=== PATIENT | female | born 2000 | race Caucasian/White ===

== ENCOUNTER 2021-01-24 18:56 | Emergency (ER) | payer BC, SELFPAY ==
[2021-01-24 18:58] VITALS: BP 130/82; PULSE 98; RESP 16; TEMP 36; O2SAT 100; BMI 30.2
--- NOTE | 2021-01-24 19:25 | RAD_ITS ---
STUDY: X-RAY - RIGHT FOOT CLINICAL: Female, 20 years old. Injury. Horse stepped on foot. Bruising of the fifth toe. TECHNIQUE: 3 view(s) of the foot. COMPARISON: None. FINDINGS: Normal talus, calcaneus, and tarsal bones. Normal visualized subtalar, talonavicular, calcaneocuboid, tarsal and tarsometatarsal articulations. Normal metatarsi. Normal metatarsophalangeal joint of the great toe. Normal tibial and fibular sesamoid bones. Normal interphalangeal joint of the great toe. Normal phalanges of the great toe. Normal second through fifth metatarsophalangeal joints. Normal interphalangeal joints and phalanges of the lesser toes. The soft tissue structures are unremarkable. RAD/Foot min 3 Views IMPRESSION: No acute fracture or dislocation Electronically Signed: Alexandro Wong DO at 19:42 EDT Tel [phone], Service support ,
--- NOTE | 2021-01-24 19:48 | ED.VIS.LOWEX ---
HPI History of Present Illness Chief Complaint: Lower Extremity Injury Informant: patient Occured/Mechanism Mechanism/Context: Yes injury Onset/Context/Timing Onset: Today Context: Sudden Onset Timing: Continuous Location: Right small toe Current Severity: Mild Maximum Severity: Moderate Worsened by: Palpation, walking Relieved by: Remaining still, rest Associated Symptoms Associated Symptoms: Negative for Parasthesia, Weakness and Loss of Funtion Narrative Narrative: Stepped on by a horse accidentally. Denies any other injury. Able to ambulate. Denies any wounds or bleeding. PFSH PFSH no medical history Home Medications No Known/Unobtainable [No Known Home Medications] 01/07/15 [History Last Taken Unknown] Allergy/AdvReac Type Severity Reaction Status Date / Time No Known Allergies Allergy Verified 01/24/21 18:57 Social History Smoking Status: Never smoker ROS ROS ED Constitutional Constitutional ED: Denies chills or fever(s) Musculoskeletal Musculoskeletal: Reports extremity pain; Denies neck pain Integumentary Denies Abrasions, rash or wounds Neurologic Neurologic: Denies paresthesias or weakness EXAM Physical Exam Const Vital Signs: 01/24/21 18:58 Temperature 96.8 F L Temperature Source Temporal Pulse Rate 98 Respiratory Rate 16 Blood Pressure 130/82 H Blood Pressure Mean 98 Pulse Ox 100 Oxygen Delivery Method Room Air Positive well nourished and well developed General Appearance ED: well developed and NAD Neck full ROM and supple Back/Spine normal ROM and normal to inspection Extremity normal to inspection and full ROM Extremity Narrative: No deformities. Right fifth digit tender to palpation. No cervical hematoma. Rest of foot and toes are nontender. Neuro oriented x3, no focal motor deficits and no sensory deficits noted Sensorium / Orientation: alert Psych mental status grossly normal and thought process normal Skin no wounds Rashes: no rashes MDM MDM MDM Narrative Medical decision making narrative: On my interpretation 3 views of the right foot are negative. Radiology confirmed this. Patient is okay walking in the sandals that she has, supportive care advised. Radiography Diagnostic Testing: Radiology Impression Foot X-Ray 01/24/21 19:25 IMPRESSION: No acute fracture or dislocation Electronically Signed: Alexandro Wong DO at 19:42 EDT Tel [phone], Service support , Discharge Plan Triage Chief Complaint: Lower Extremity Injury ED Provider: Campos Dos Santos Dx/Rx/DC Orders Clinical Impression: Contusion of fifth toe, right Instructions: ED Foot Contusion Prescriptions: No Action No Known Home Medications RF: 0 Primary Care Provider: Mani Marsh Referrals: Mani Marsh MD [Primary Care Provider] - As Needed Disposition Disposition: Home, self care
[2021-01-24 20:32] VITALS: BP 128/61; PULSE 87; RESP 18; O2SAT 96
== END 2021-01-24 20:32 | disposition home or self-care (01) ==
PROVIDERS: Emergency Provider Emergency Medicine; PCP Pediatrics
DX: S90.121A Contusion of right lesser toe(s) without damage to nail, initial encounter (principal); W55.19XA Other contact with horse, initial encounter
CPT/HCPCS: 73630; 99282

== ENCOUNTER 2023-02-06 18:18 | Emergency (ER) | payer BC, SELFPAY ==
[2023-02-06 18:19] VITALS: BP 157/80; PULSE 93; RESP 18; TEMP 36.6; O2SAT 100; BMI 36.4
--- NOTE | 2023-02-06 18:27 | EX.ED.DYSGE1 ---
HPI History of Present Illness Chief Complaint: GI Bleed Informant: patient Onset/Context/Timing Onset: Yesterday Narrative Narrative: Patient presents with blood in her stool for the past 2 days. She states she only notes blood with bowel movements. She does not have significant pain with bowel movement. She went to urgent care yesterday but they never really addressed the issue, and said telling her to stop the antibiotics that she was on for an upper respiratory infection. [facility] Medical History Anemia Home Medications No Known/Unobtainable [No Known Home Medications] 01/07/15 [History Last Taken Unknown] Allergy/AdvReac Type Severity Reaction Status Date / Time No Known Allergies Allergy Verified 01/24/21 18:57 Social History Smoking Status: Never smoker ROS ROS ED Constitutional Constitutional ED: Denies chills or fever(s) Eyes Eyes: Denies discharge from eye(s) ENT ENT ED: Denies discharge from eye(s), rhinorrhea or sore throat Cardiovascular Cardiovascular: Denies chest pain Respiratory/Chest Respiratory/Chest: Denies cough or dyspnea Gastrointestinal Gastrointestinal: Reports other Details: Bright red blood in stool ; Denies abdominal pain, diarrhea, nausea or vomiting Genitourinary Genitourinary ED: Denies dysuria Musculoskeletal Musculoskeletal: Denies back pain or extremity pain Integumentary Denies Abrasions or rash Neurologic Neurologic: Denies headache(s) or weakness Psychiatric Psychiatric: Denies anxiety or depression Allergic/Immunologic Allergic/Immunologic ED: Denies lip swelling or urticaria EXAM Physical Exam Const Vital Signs: 02/06/23 18:19 Temperature 97.8 F Temperature Source Temporal Pulse Rate 93 Respiratory Rate 18 Blood Pressure 157/80 H Blood Pressure Mean 105 Pulse Ox 100 Oxygen Delivery Method Room Air Positive well nourished and well developed General Appearance ED: well developed HEENT Reports normocephalic and head/scalp atraumatic Eyes PERRL and EOMs intact bilaterally Neck supple Chest Wall inspection of chest normal and palpation of chest normal Resp normal respiratory effort and clear to auscultation bilaterally Cardio regular rate and regular rhythm GI normal to inspection, nondistended, normoactive bowel sounds GI Narrative: Rectal examination reveals no obvious external hemorrhoids. There appears to be a very small fissure at about the 1 o'clock position. No active blood noted at this time. Palpation: soft Extremity normal to inspection Neuro oriented x3 and no sensory deficits noted Sensorium / Orientation: alert Motor Exam: strength 5/5 throughout Psych mental status grossly normal Skin no rashes or lesions noted MDM MDM MDM Narrative Medical decision making narrative: Labwork obtained to evaluate for leukocytosis, anemia, and electrolyte derangement. Lab Data Labs: Laboratory Results - last 24 hr 02/06/23 02/06/23 02/06/23 18:40 18:40 18:40 WBC 9.9 RBC 4.81 Hgb 13.3 Hct 40.6 MCV 84.4 MCH 27.7 MCHC 32.8 RDW Std Deviation 41.1 RDW Coeff of Guy 13.2 Plt Count 265 MPV 9.7 Immature Gran % (Auto) 0.200 Neut % (Auto) 65.6 Lymph % (Auto) 24.6 [place] % (Auto) 8.2 Eos % (Auto) 1.1 Baso % (Auto) 0.3 Absolute Neuts (auto) 6.5 Absolute Lymphs (auto) 2.44 Nucleated RBC % 0 PT 13.4 INR 1.0 APTT 27.8 Sodium 140 Potassium 3.7 Chloride 109 H Carbon Dioxide 26.0 Anion Gap 5 BUN 12 Creatinine 0.82 Estim Creat Clear Calc 85.83 Est GFR (MDRD) Af Amer 113 Est GFR (MDRD) Non-Af 93 BUN/Creatinine Ratio 14.7 Glucose 91 Calcium 8.7 Treatment and Re-Evaluation :: CBC reveals normal white count and hemoglobin normal at 13.3. Differential is unremarkable. Coags are normal. Chemistry studies normal. At this time I do feel her bleeding is most likely from the small fissure. She will continue to monitor symptoms. Return instructions are given. Discharge Plan Triage Chief Complaint: GI Bleed ED Provider: Radha Goldberg Dx/Rx/DC Orders Clinical Impression: GI bleed, Fissure in ano Instructions: ED Lower GI Bleeding (Stable) Prescriptions: No Action No Known Home Medications Primary Care Provider: Care Physician,No Primary Referrals: Mani Marsh MD [Non-Staff] - Marylou Booker MD [Med Staff - Active Staff] - As Needed Disposition Disposition: Home, Self Care
[2023-02-06 18:45] LABS: Absolute Lymphocyte Count 2.44 X10^3/uL (0.83-4.51); Absolute Neutrophil Count 6.5 X10^3/uL (2.0-7.7); Basophil# 0.03 X10^3/uL; Basophil% 0.3 % (0-1); Eosinophil# 0.11 X10^3/uL; Eosinophils% 1.1 % (0-5); Hematocrit 40.6 % (37-47); Hemoglobin 13.3 g/dL (12.0-15.0); Lymphocyte # 2.44 X10^3/ul (0.83-4.51); Lymphocyte % 24.6 % (19-41); Mean Corp Hgb Conc 32.8 g/dL (32-36); Mean Corpuscular Hgb 27.7 pg (27.0-32.0); Mean Corpuscular Volume 84.4 fL (81-99); Mean Platelet Vol. 9.7 fl (6.2-12.0); Monocyte# 0.81 X10^3/uL; Monocyte% 8.2 % (0-10); NRBC Flagged by Analyzer 0 % (0-5); Neutrophil # 6.51 X10^3/uL (2.7-7.7); Neutrophil % 65.6 % (47-70); Platelet Count 265 K/mm3 (150-450); RBC Distribution Width CV 13.2 % (11.6-14.6); RBC Distribution Width SD 41.1 fl (35.1-43.9); Red Blood Count 4.81 M/mm3 (4.2-5.4); White Blood Count 9.9 K/mm3 (4.4-11.0)
[2023-02-06 18:57] LABS: Partial Thromboplast Time 27.8 Seconds (24.1-36.2); Prothrombin Time (Protime)PT. 13.4 SECONDS (11.7-14.9)
[2023-02-06 18:58] LABS: Anion Gap 5 (5-15); BUN 12 mg/dL (7-18); BUN/Creat Ratio 14.7 RATIO (10-20); Calcium,Total 8.7 mg/dL (8.5-10.1); Chloride 109 mmol/L (98-107); Creatinine, Serum 0.82 mg/dL (0.55-1.02); EST Glomerular Filtration Rate 93 mL/min (>60); Est Glom Filt Rate - Afr Amer 113 mL/min (>60); Estimated Creatinine Clearance 85.83 ml/min; Glucose 91 mg/dL (74-106); Potassium 3.7 mmol/L (3.5-5.1); Sodium Level 140 mmol/L (136-145)
[2023-02-06 19:24] VITALS: RESP 16
== END 2023-02-06 19:25 | disposition home or self-care (01) ==
PROVIDERS: Emergency Provider Emergency Medicine; Visit Provider Emergency Medicine
DX: K92.2 Gastrointestinal hemorrhage, unspecified (principal); K60.2 Anal fissure, unspecified
CPT/HCPCS: 80048; 85025; 85610; 85730; 99283; A4216

== ENCOUNTER 2023-05-10 19:04 | Emergency (ER) | payer BC, SELFPAY ==
[2023-05-10 19:07] VITALS: BP 130/73; PULSE 91; RESP 18; TEMP 36.5; O2SAT 100; BMI 36.8
--- NOTE | 2023-05-10 20:55 | EX.ED.GENINJ ---
HPI History of Present Illness Chief Complaint: Laceration [facility] Medical History Anemia Home Medications cephalexin 500 mg capsule 500 mg PO Q8H 7 days #21 caps 05/10/23 [Rx Last Taken Unknown] Allergy/AdvReac Type Severity Reaction Status Date / Time No Known Allergies Allergy Verified 05/10/23 19:06 Social History Smoking Status: Never smoker EXAM Physical Exam Const Vital Signs: 05/10/23 19:07 05/10/23 21:18 Temperature 97.7 F L Temperature Source Temporal Pulse Rate 91 Respiratory Rate 18 18 Blood Pressure 130/73 H 128/72 H Blood Pressure Mean 92 90 Pulse Ox 100 100 Oxygen Delivery Method Room Air Room Air [facility] [place] Narrative Medical decision making narrative: HISTORY OF PRESENT ILLNESS: 23-year-old female here with hand laceration. She states she was washing dishes when a glass broke and cut the fifth digit of her right hand. She is right-hand dominant. She notes her last tetanus was 2 to 3 years ago. REVIEW OF SYSTEMS: Pertinent positives: Laceration Pertinent negatives: Numbness tingling PHYSICAL EXAM: Nursing triage notes reviewed, Vital signs reviewed Constitutional: please see mdm Extremities: No edema, no obvious tendinous involvement, intact flexion and the flexor digitorum superficialis and profundus tendons. Neuro: Intact 5/5 strength with ok sign (median), intact finger abduction (ulnar) intact wrist extension (radial n). Intact sensation in the radial, ulnar, and median nerve distributions. Skin: Linear laceration noted to the medial surface of the right fifth digit approximately 2 cm in length. Bleeding controlled. MEDICAL DECISION MAKING: Chief Complaint: Laceration External records reviewed: Last ED visit in January 2023 Factors affecting care: Anemia ALL IMAGES (IF OBTAINED) HAVE BEEN PERSONALLY REVIEWED AND INTERPRETED BY MYSELF. MDM Narrative: Patient was hemodynamically stable, afebrile, nontoxic-appearing. Procedure: Laceration repair. The procedure was performed by myself. Indication: Wound repair Risks and benefits: risks, benefits and alternatives were discussed Consent: Consent was obtained. Wound Details: Approximately 2 cm linear laceration noted to the medial surface of the left fifth digit. Bleeding controlled. No tendinous involvement, no foreign bodies. Anesthesia: Digital block with 1% lidocaine Wound prep: Patient was prepped and draped in the usual sterile fashion. Tetanus: Updated 2 years ago Irrigation Solution: Saline Wound Preparation: Soaked in chlorhexidine The wound was explored to its base in a bloodless field. Procedure Description: 5-0 Vicryl sutures applied in a running pattern with good approximation Patient tolerated the procedure well with no immediate complications The patient and/or family, caregivers express understanding. The patient and/or family, caregivers agrees with the plan. The patient suffered lacerations to the There is no evidence to suggest foreign bodies were history and exam. Visual and tactile exams are unremarkable. There was no evidence of neurovascular injury. Patient had a normal distal vascular exam, and had full normal motor and sensory exams. There was also no evidence of tendon injury, with normal distal full range of motion, flexion, extension, abduction, abduction. There is no evidence of local joint space involvement at this time patient was irrigated with copious sterile normal saline and primary. Performed please see procedure note. The patient was given signs and symptoms warnings for infection, such as increasing pain, redness, swelling, associated heat, pus or fever. Patient was given instructions for timely follow-up for removal. Patient agreed with the plan of care. Give Keflex for antimicrobial prophylaxis. Shared decision making: I will have a discussion with the patient and or visitors regarding risk/benefits of further testing or admission. They will be made aware of of the risk/benefits inherent in this decision they will be given the opportunity to voice understanding. Total critical care time today provided was at least 0 minutes. This excludes separately billable procedures. Critical care time (if documented) is secondary to the patient having high probability of clinically significant/life threatening deterioration in the patient's condition which required my urgent intervention. Discharge Plan Triage Chief Complaint: Laceration ED Provider: Michael Piña Dx/Rx/DC Orders Clinical Impression: Finger laceration Prescriptions: New cephalexin 500 mg capsule 500 mg PO Q8H 7 Days Qty: 21 0RF Primary Care Provider: Care Physician,No Primary Referrals: Marcos Oakes MD [Med Staff - Instructional Specialist] - Activity Restrictions/Additional Instructions: Thank you for trusting us with your care today! Please take Tylenol (2 pills, 650 mg), ibuprofen (2 pills, 400 mg) every 6 hours as needed for pain and fever control. Please take Keflex as prescribed for infection prophylaxis. Please keep your wound dry for the first 24 hours. After the first 24 hours please apply peroxide and Triple Antibiotic ointment or Neosporin daily for 2 days. After these 2 days please use soap and water keep your wound clean. Please keep your wound covered. Your sutures are absorbable. There is no need to come back and get them taken out. Please return to the emergency department if your symptoms change or worsen. Specifically develop fever, redness, white-yellow discharge or increasing pain at the site of the wound. Please follow with your primary care physician for further outpatient evaluation and management. Disposition Disposition: Home, Self Care
[2023-05-10 21:18] VITALS: BP 128/72; RESP 18; O2SAT 100
[2023-05-10 22:14] VITALS: BP 116/64; PULSE 76; RESP 18; O2SAT 100
== END 2023-05-10 22:15 | disposition home or self-care (01) ==
PROVIDERS: Emergency Provider Emergency Medicine; Visit Provider Emergency Medicine
DX: S61.216A Laceration without foreign body of right little finger without damage to nail, initial encounter (principal); Y93.G1 Activity, food preparation and clean up; W25.XXXA Contact with sharp glass, initial encounter
CPT/HCPCS: 12001; 99282

== ENCOUNTER → 2025-01-01 | Outpatient (CLI) | payer BC, SELFPAY ==
[2025-01-01 17:44] LABS: Absolute Lymphocyte Count 2.26 X10^3/uL (0.83-4.51); Absolute Neutrophil Count 6.6 X10^3/uL (2.0-7.7); Basophil# 0.05 X10^3/uL; Basophil% 0.5 % (0-1); Eosinophil# 0.07 X10^3/uL; Eosinophils% 0.7 % (0-5); Hematocrit 42.2 % (37-47); Hemoglobin 13.5 g/dL (12.0-15.0); Lymphocyte # 2.26 X10^3/ul (0.83-4.51); Lymphocyte % 23.3 % (19-41); Mean Corpuscular Hgb 26.5 pg (27.0-32.0); Mean Corpuscular Volume 82.7 fL (81-99); Mean Platelet Vol. 10.8 fl (6.2-12.0); Monocyte# 0.67 X10^3/uL; Monocyte% 6.9 % (0-10); NRBC Flagged by Analyzer 0 % (0-5); Neutrophil # 6.62 X10^3/uL (2.7-7.7); Neutrophil % 68.3 % (47-70); Platelet Count 286 K/mm3 (150-450); RBC Distribution Width CV 12.5 % (11.6-14.6); RBC Distribution Width SD 37.6 fl (35.1-43.9); White Blood Count 9.7 K/mm3 (4.4-11.0)
[2025-01-01 18:40] LABS: Cholesterol 181 mg/dL (<=190); High Density Lipoprotein 58 mg/dL; Low Density Lipoprotein Calc. 107 mg/dL; Triglycerides 84 mg/dL; Very Low Density Lipoprotein 17 mg/dL (5-40); cholesterol:hdl ratio screen 3.14
[2025-01-01 18:41] LABS: ALB/GLOB Ratio 1.1 RATIO (0.9-2.4); AST(SGOT) 32 U/L (<=31); Alanine Aminotransfer ALT/SGPT 38 U/L (<=34); Alkaline Phosphatase 75 U/L (35-104); Anion Gap 12 (5-15); BUN 11 mg/dL (4-19); Calcium,Total 9.8 mg/dL (7.6-11.0); Carbon Dioxide 20.9 mmol/L (21.0-32.0); Chloride 103 mmol/L (98-108); Creatinine, Serum 0.62 mg/dL (0.70-1.20); EST Glomerular Filtration Rate 128 (>60); Globulin 3.7 g/dL (2.2-4.2); Glucose 109 mg/dL (70-99); Potassium 3.9 mmol/L (3.3-5.1); Protein, Total 7.7 g/dL (5.9-8.4); Sodium Level 136 mmol/L (133-145); Thyroid Stim Hormone (TSH) < 0.005 uIU/mL (0.300-4.200); Total Bilirubin 0.36 mg/dL (0.00-1.30)
[2025-01-02 10:46] LABS: Free T3 4.4 pg/mL (2.18-3.98); T4 Total, Thyroxin 10.3 ug/dL (4.8-13.9)
== END | disposition home or self-care (01) ==
LOC: BFHLAB 13:48
PROVIDERS: Visit Provider Nurse Practitioner Family
DX: Z00.01 Encounter for general adult medical examination with abnormal findings (principal); Z83.49 Family history of other endocrine, nutritional and metabolic diseases; E05.90 Thyrotoxicosis, unspecified without thyrotoxic crisis or storm
CPT/HCPCS: 36415; 80053; 80061; 84436; 84439; 84443; 84481; 85025

== ENCOUNTER → 2025-01-04 | Outpatient (CLI) | payer BC, SELFPAY | END | disposition home or self-care (01) | LOC: BFHLAB 16:24 | PROVIDERS: PCP Nurse Practitioner Family; Visit Provider Nurse Practitioner Family | DX: E05.90 Thyrotoxicosis, unspecified without thyrotoxic crisis or storm (principal) | CPT/HCPCS: 36415; 82784; 84432; 84442; 86376; 86800 ==

== ENCOUNTER → 2025-01-17 | Outpatient (CLI) | payer BC, SELFPAY ==
--- NOTE | 2025-01-17 10:01 | NM_ITS ---
PROCEDURE: THYROID UPTAKE SINGLE OR MULT REASON FOR EXAM: THYROTOXICOSIS TECHNIQUE: Nuclear medicine thyroid uptake and scan. RADIOPHARMACEUTICAL: Oral administration 288 uCi iodine 123 sodium iodide. COMPARISON: None provided. FINDINGS: Imaging and both anterior oblique views of the thyroid bed demonstrate a substantial paucity of activity within the thyroid gland. Thyroid uptake at 3.75 hours was calculated at 2.5%. Thyroid uptake at 23.48 hours was calculated at 1.6% NM/Thyroid Uptake Single or Mult IMPRESSION: 1. Markedly abnormally low thyroid uptake with marked paucity seen of the thyro id scan. Given the history of thyrotoxicosis, findings are suggestive of recent thyroiditis. Reading Location: [place] [id number]
== END | disposition home or self-care (01) ==
PROVIDERS: PCP Nurse Practitioner Family; Referring Provider Nurse Practitioner Family; Visit Provider Nurse Practitioner Family
DX: E05.90 Thyrotoxicosis, unspecified without thyrotoxic crisis or storm (principal)
CPT/HCPCS: 78012; A9516